=== PATIENT | male | born 1990 | race American Indian/Alaskan Native ===

== ENCOUNTER 2018-10-03 16:47 | Emergency (ER) | payer BC, OTHER ==
[2018-10-03] MEDS ORDERED: KEPPRA 1,000 MG/NS 0.75% 100ML 1,000 MG/100 ML BAG IV ONE (17:01)
[2018-10-03] MEDS ORDERED: GEODON IM ONE ×2 (17:01→18:53)
[2018-10-03] MEDS ORDERED: NACL 0.9% 1000 ML 1,000 ML IV ONE ×3 (17:04→19:42)
[2018-10-03] MEDS ORDERED: WATER FOR INJ Sterile (PF) 10 ML ONE ×2 (17:06→19:18)
--- NOTE | 2018-10-03 17:11 | Emergency Department Report ---
ED Seizure HPI - General Chief Complaint: Seizure Stated Complaint: POSS SEIZURE Time Seen by Provider: 10/03/18 16:55 Source: EMS Mode of arrival: Stretcher Limitations: Altered Mental Status - History of Present Illness Initial Comments: 28-year-old male with a past medical history presents to the hospital with complains of alteration in mental status and possible seizure. EMS was alerted by the patient's girlfriend who noticed that he was lying on the floor after shaking activity. EMS reports the patient was unconscious with urinary incontinence at the scene. In route to the hospital patient became combative and received Ativan 2 mg IV prior to arrival. Girlfriend apparently also reported that while he was sleeping at night he was having intermittent twitching. Patient is currently altered, restless, and requiring physical restraints. Family members interviewed at the bedside at 7:50 PM. Patient marlena has a history of seizures. He has had seizures since age 22. He has been seen by a neurologist in the past and diagnosed with narcoleptic seizures. He has been noncompliant with Keppra. Mother also states that patient tends to have more seizures when smoking marijuana. His girlfriend at the bedside states he has not been smoking marijuana around her. Mother also states that he has recently been smoking CBD oil. - Related Data Previous Rx's Medication Instructions Recorded Last Taken Type levETIRAcetam [Keppra TAB] 500 mg PO BID #60 tablet 10/04/18 Unknown Rx Allergies Allergy/AdvReac Type Severity Reaction Status Date / Time No Known Allergies Allergy Unverified 10/03/18 19:04 ED Review of Systems ROS: Stated complaint: POSS SEIZURE Other details as noted in HPI Comment: All other systems reviewed and negative ED Past Medical Hx - Past Medical History Previous Medical History?: Yes Hx Seizures: Yes (narcolepsy seizures since age 22) - Medications Home Medications: Home Medications Medication Instructions Recorded Confirmed Last Taken Type levETIRAcetam [Keppra TAB] 500 mg PO BID #60 tablet 10/04/18 Unknown Rx ED Physical Exam - General Limitations: Altered Mental Status - Other Other exam information: General: Altered Head exam: Atraumatic, normocephalic Eyes exam: Normal appearance, pupils equal reactive to light, extraocular movements intact ENT: Moist mucous membrane Neck exam: Normal inspection, full range of motion, no meningismus nontender Respiratory exam: Clear to auscultation bilateral, no wheezes, rales, crackles Cardiovascular: Normal rate and rhythm, normal heart sounds Abdomen: Soft, nondistended, and nontender, with normal bowel sounds, no rebound, or guarding Extremity: Full range of motion normal inspection no deformity Back: Normal Inspection, full range of motion, no tenderness Neurologic: Altered, opens eyes spontaneously, will not follow commands, 5/5 upper and lower extremity strength with intact sensation. Psychiatric: Restless, agitated Skin: Warm, dry, intact ED Course Vital Signs 10/03/18 10/03/18 10/03/18 16:54 17:01 17:03 Temperature Pulse Rate 95 H 103 H 88 Respiratory 18 19 18 Rate Blood Pressure 108/50 Blood Pressure 108/50 [Left] O2 Sat by Pulse 96 Oximetry 10/03/18 10/03/18 10/03/18 17:15 17:30 17:45 Temperature Pulse Rate 98 H 86 84 Respiratory 18 16 17 Rate Blood Pressure 121/53 111/49 108/52 Blood Pressure [Left] O2 Sat by Pulse 97 Oximetry 10/03/18 10/03/18 10/03/18 18:15 18:23 18:30 Temperature Pulse Rate 84 84 Respiratory 12 20 17 Rate Blood Pressure 110/55 118/52 Blood Pressure [Left] O2 Sat by Pulse 100 Oximetry 10/03/18 10/03/18 10/03/18 18:45 19:01 19:20 Temperature Pulse Rate 75 73 88 Respiratory 17 16 23 Rate Blood Pressure 95/62 110/55 Blood Pressure 119/62 [Left] O2 Sat by Pulse 100 98 Oximetry 10/03/18 10/03/18 10/03/18 20:38 21:47 22:59 Temperature Pulse Rate 89 61 58 L Respiratory 20 13 13 Rate Blood Pressure Blood Pressure 119/78 113/65 112/58 [Left] O2 Sat by Pulse 98 97 96 Oximetry 10/03/18 10/03/18 23:18 23:46 Temperature 97.9 F Pulse Rate 67 Respiratory 13 Rate Blood Pressure Blood Pressure 123/66 [Left] O2 Sat by Pulse 97 Oximetry - Reevaluation(s) Reevaluation #1: 10/04/18 00:26 Patient is no longer combative. Restraints have been removed. He is still very drowsy although he intermittently has been able to wake up and speak his name. UDS positive for cocaine and marijuana. PT prepped for discharge and he may be sent home with prescriptions once he is alert and can ambulate. Mother informed ED Medical Decision Making - Lab Data Result diagrams: 10/03/18 16:53 10/03/18 20:35 - Radiology Data Radiology results: report reviewed PROCEDURE: CT cervical spine without contrast. TECHNIQUE: Computerized tomography of the cervical spine was performed from the skull base to T1 without contrast material. CT DOSE LENGTH PRODUCT: 656.3 mGycm HISTORY: Seizure, altered mental status, patient fell. COMPARISONS: None. FINDINGS: The cervical vertebrae have normal height and alignment. There are no fractures. There is no subluxation. The disc spaces appear normal. The spinal canal is widely patent. The facet joints appear normal. The neural foramina are widely patent. The prevertebral soft tissues have normal thickness. IMPRESSION: Normal study. PROCEDURE: CT head without contrast. TECHNIQUE: Computerized tomography of the head was performed without contrast material. CT DOSE LENGTH PRODUCT: 1046.8 mGycm HISTORY: Seizure, altered mental status, patient fell. COMPARISONS: None. FINDINGS: The ventricles are normal in size. The callejas matter and white matter appear normal. There are no mass lesions. There is no intracranial hemorrhage. The calvarium appears intact. The mastoid air cells and paranasal sinuses are well aerated as far as visualized. IMPRESSION: Normal study. - Medical Decision Making Patient's initial BMP and improved with time and hydration. Initial BMP suggestive of a lactic acidosis secondary to multiple seizures. Potassium level also improved. Patient received multiple dose of meds here including Keppra IV, Geodon, Ativan, and Benadryl and attempt to sedate him to obtain imaging studies. UDS positive for cocaine and marijuana. - Differential Diagnosis seizure, encephalopathy, intracranial hemorrhage, brain mass Critical Care Time: No Critical care attestation.: If time is entered above; I have spent that time in minutes in the direct care of this critically ill patient, excluding procedure time. ED Disposition Clinical Impression: Seizure, Noncompliance with medication regimen, Cocaine abuse, Marijuana abuse Disposition: DC-01 TO HOME OR SELFCARE Is pt being admited?: No Does the pt Need Aspirin: No Condition: Stable Instructions: Recurrent Seizures Adult (ED) Additional Instructions: Take the medication as prescribed. Follow up with your doctor or the clinic/doctor provided. Return if symptoms worsen as indicated by your discharge instructions Prescriptions: levETIRAcetam [Keppra TAB] 500 mg PO BID #60 tablet Referrals: SELMA RIVERO MD [Staff Physician] - 3-5 Days MEME OCAMPO MD [Staff Physician] - 3-5 Days your, neurolgist [Other] - 3-5 Days
[2018-10-03 17:24] LABS: Basophils % (Auto) 0.3 % (0.0-1.8); Eosinophils # (Auto) 0.1 K/mm3 (0.0-0.4); Eosinophils % (Auto) 0.6 % (0.0-4.3); Hematocrit 46.5 % (35.5-45.6); Hemoglobin 15.7 gm/dl (11.8-15.2); Lymphocytes # (Auto) 1.4 K/mm3 (1.2-5.4); Mean Corpuscular HGB Conc 34 % (32-34); Mean Corpuscular Volume 100 fl (84-94); Monocytes # (Auto) 0.6 K/mm3 (0.0-0.8); Monocytes % (Auto) 4.9 % (0.0-7.3); Red Blood Count 4.65 M/mm3 (3.65-5.03); Red Cell Distribution Width 14.3 % (13.2-15.2)
[2018-10-03 17:38] LABS: Albumin 4.3 g/dL (3.9-5); Calcium 9.2 mg/dL (8.4-10.2)
[2018-10-03 17:53] LABS: Platelet Count 263 K/mm3 (140-440)
[2018-10-03] MEDS ORDERED: BENADRYL IV ONE (18:03)
[2018-10-03] MEDS ORDERED: BENADRYL ONE (18:05)
[2018-10-03] MEDS ORDERED: ATIVAN IV ONE (18:44)
--- NOTE | 2018-10-03 20:52 | Cat Scan Report ---
PROCEDURE: CT head without contrast. TECHNIQUE: Computerized tomography of the head was performed without contrast material. CT DOSE LENGTH PRODUCT: 1046.8 mGycm HISTORY: Seizure, altered mental status, patient fell. COMPARISONS: None. FINDINGS: The ventricles are normal in size. The callejas matter and white matter appear normal. There are no mass lesions. There is no intracranial hemorrhage. The calvarium appears intact. The mastoid air cells and paranasal sinuses are well aerated as far as visualized. IMPRESSION: Normal study. This document is electronically signed by Michael Naranjo MD., Oct 03 2018 08:50:43 PM ET
--- NOTE | 2018-10-03 20:55 | Cat Scan Report ---
PROCEDURE: CT cervical spine without contrast. TECHNIQUE: Computerized tomography of the cervical spine was performed from the skull base to T1 wit hout contrast material. CT DOSE LENGTH PRODUCT: 656.3 mGycm HISTORY: Seizure, altered mental status, patient fell. COMPARISONS: None. FINDINGS: The cervical vertebrae have normal height and alignment. There are no fractures. There is no subluxat ion. The disc spaces appear normal. The spinal canal is widely patent. The facet joints appear normal . The neural foramina are widely patent. The prevertebral soft tissues have normal thickness. IMPRESSION: Normal study. This document is electronically signed by Michael Naranjo MD., Oct 03 2018 08:53:30 PM ET
[2018-10-03 21:11] LABS: BUN/Creatinine Ratio 8; Blood Urea Nitrogen 9 mg/dL (9-20); Calcium 8.4 mg/dL (8.4-10.2); Hemolysis Index 12
[2018-10-03 23:16] LABS: Amphetamine Screen,Urine PRESUMPTIVE NEGATIVE; Benzodiazepines Screen,Urine PRESUMPTIVE NEGATIVE; Methadone Screen,Urine PRESUMPTIVE NEGATIVE; Opiate Screen,Urine PRESUMPTIVE NEGATIVE
[2018-10-04 00:05] LABS: Cannabinoid Screen,Urine PRESUMPTIVE POSITIVE; Cocaine Screen,Urine PRESUMPTIVE POSITIVE
[2018-10-04 01:28] VITALS: BP 106/58
== END 2018-10-04 02:30 | disposition home or self-care (01) ==
LOC: ED 16:47
DX: G40.909 Epilepsy, unspecified, not intractable, without status epilepticus (principal); R41.82 Altered mental status, unspecified; F14.10 Cocaine abuse, uncomplicated; F12.10 Cannabis abuse, uncomplicated
CPT/HCPCS: 36415; 70450; 72125; 80048; 80053; 80307; 82140; 82550; 82805; 82962; 83735; 85025; 96361; 96372; 96374; 96375; 99285; G0480; J1200; J1953; J2060; J3486; J7030; 80320